=== PATIENT | male | born 2000 | race African-American/Black ===

== ENCOUNTER 2024-11-10 20:32 | Emergency (ER) | payer BC, SELFPAY ==
--- NOTE | ~2024-11-10 | XR_ITS ---
XR chest 1V portable Ordering provider: Marino Farias MD History: 24 years Male with . Localized wheezing, LLL . Comparison: None. FINDINGS: MEDIASTINUM: The cardiac silhouette is not enlarged. LUNGS: No infiltrates, effusions or pneumothorax. OTHER: No free air under the diaphragm. IMPRESSION: No acute cardiopulmonary pathology. Reviewed, dictated and finalized at location A.
[2024-11-10 20:34] VITALS: BP 119/86; PULSE 63; RESP 12; TEMP 36.9; O2SAT 100
[2024-11-10] MEDS: SODIUM CHLORIDE 0.9% IV 2,000 ML 999 ML IV CONT (21:18)
[2024-11-10] MEDS: ONDANSETRON INJ 4 MG/2 ML VIAL IV PUSH (21:19)
[2024-11-10] MEDS: FAMOTIDINE 20 MG/2 ML VIAL IV PUSH (21:19)
[2024-11-10 21:32] LABS: Basophils Percent Auto 0.2 % (0.2-1.2); Eosinophils Absolute Auto 0.1 K/mm3 (0-0.3); Eosinophils Percent Auto 1.4 % (0-4.4); Hematocrit 44.3 % (42.0-52.0); Hemoglobin 13.9 g/dL (14.0-18.0); Immature Granulocyte Absolute 0.04 K/mm3 (0.00-0.031); Immature Granulocyte Percent A 0.6 % (0-0.5); Lymphocytes Percent Auto 50.9 % (18.3-44.2); Mean Corpuscular HGB Conc 31.4 g/dl (32-36); Mean Corpuscular Hemoglobin 26.6 pg (26-34); Mean Corpuscular Volume 84.9 fl (80-100); Monocytes Absolute Auto 0.6 K/mm3 (0.1-0.6); Monocytes Percent Auto 10.2 % (2.6-8.5); Neutrophils Absolute Auto 2.3 K/mm3 (1.3-6.7); Neutrophils Percent Auto 36.7 % (45.5-73.1); Platelet Count Result 297 k/mm3 (150-375); Red Blood Count 5.22 M/mm3 (4.6-6.20); Red Cell Distribution Width 12.8 % (11.5-14.5); White Blood Count 6.3 K/mm3 (4.5-10.0)
[2024-11-10 21:42] LABS: Alanine Aminotransferase 14 U/L (6-50); Albumin Level 4.3 g/dL (3.5-5.1); Alkaline Phosphatase 64 U/L (38-126); Anion Gap 7 mmol/L (4-12); Aspartate Amino Transferase 27 U/L (17-59); Bilirubin,Total 0.7 mg/dL (0.2-1.3); Blood Urea Nitrogen 7 mg/dL (9-20); Calcium 9.3 mg/dL (8.4-10.2); Carbon Dioxide 27 mmol/L (22-30); Chloride 106 mmol/L (98-107); Estimated CRCL calculation 118 ml/min; Estimated Glomerular Filt Rate > 60; Glucose 89 mg/dL (65-110); Lipase 26 U/L (23-300); Potassium 3.9 mmol/L (3.4-5.0); Sodium 140 mmol/L (137-145)
--- NOTE | 2024-11-10 21:42 | ED.GENADULT ---
HPI - General Adult General Chief complaint: Nausea/Vomiting/Diarrhea Stated complaint: flu like symptoms and N/V Time Seen by Provider: 11/10/24 20:49 History of Present Illness HPI narrative: This is a 24-year-old male presenting with 4 days of viral symptoms. Symptoms include headache, productive cough with wheezing, nausea. He denies throat pain ear pain chest pain abdominal symptoms. Taking [id number] NyQuil. Related Data Allergies Allergy/AdvReac Type Severity Reaction Status Date / Time No Known Allergies Allergy Verified 11/10/24 20:34 Exam Narrative: APPEARANCE: No apparent distress. Well-appearing Head: atraumatic. EYES: EOMI, NOSE: Atraumatic NECK: Trachea midline RESPIRATORY: No increased rate of breathing, scattered wheezing left lower lobe CARDIOVASCULAR: RRR, no peripheral edema ABDOMINAL: Non-distended soft nontender MUSCULOSKELETAl: No obvious deformities NEURO: Alert. Moving 4/4 extremities SKIN:: Warm, dry. Normal color PSYCHIATRIC: Normal affect Course Vital Signs Vital signs: Vital Signs Temperature 98.4 F 11/10/24 20:34 Pulse Rate 63 11/10/24 20:34 Respiratory Rate 12 11/10/24 20:34 Blood Pressure 119/86 11/10/24 20:34 Pulse Oximetry 100 11/10/24 20:34 Oxygen Delivery Room Air 11/10/24 20:34 Temperature 98.4 F 11/10/24 20:34 Pulse Rate 65 11/10/24 21:56 Respiratory Rate 20 11/10/24 21:56 Blood Pressure 119/86 11/10/24 20:34 Pulse Oximetry 100 11/10/24 20:34 Oxygen Delivery Room Air 11/10/24 20:34 Medical Decision Making [facility] Narrative Medical decision making narrative: -Course: 24-year-old male presenting with viral symptoms. Got some scattered wheezing specifically left lower lobe. Given breathing treatment improvement. -DDX includes but is not limited to: Viral syndrome pneumonia flu COVID bronchitis asthma reactive airway disease Vital Signs Vital Signs: Vital Signs Temperature 98.4 F 11/10/24 20:34 Pulse Rate 63 11/10/24 20:34 Respiratory Rate 12 11/10/24 20:34 Blood Pressure 119/86 11/10/24 20:34 Pulse Oximetry 100 11/10/24 20:34 Oxygen Delivery Room Air 11/10/24 20:34 Temperature 98.4 F 11/10/24 20:34 Pulse Rate 65 11/10/24 21:56 Respiratory Rate 20 11/10/24 21:56 Blood Pressure 119/86 11/10/24 20:34 Pulse Oximetry 100 11/10/24 20:34 Oxygen Delivery Room Air 11/10/24 20:34 Lab Data 11/10/24 21:23 11/10/24 21:23 Labs: Lab Results 11/10/24 Range/Units 21:23 WBC 6.3 (4.5-10.0) K/mm3 RBC 5.22 (4.6-6.20) M/mm3 Hgb 13.9 L (14.0-18.0) g/dL Hct 44.3 (42.0-52.0) % MCV 84.9 (80-100) fl MCH 26.6 (26-34) pg MCHC 31.4 L (32-36) g/dl RDW 12.8 (11.5-14.5) % Plt Count 297 (150-375) k/mm3 MPV 10.0 (7.4-10.4) fl Immature Gran % (Auto) 0.6 H (0-0.5) % Neut % (Auto) 36.7 L (45.5-73.1) % Lymph % (Auto) 50.9 H (18.3-44.2) % [place] % (Auto) 10.2 H (2.6-8.5) % Eos % (Auto) 1.4 (0-4.4) % Baso % (Auto) 0.2 (0.2-1.2) % Lymph # (Auto) 3.20 (0.9-3.2) K/mm3 [place] # (Auto) 0.6 (0.1-0.6) K/mm3 Eos # (Auto) 0.1 (0-0.3) K/mm3 Baso # (Auto) 0.0 (0.0-0.1) K/mm3 Abs Immat Gran (auto) 0.04 H (0.00-0.031) K/mm3 Absolute Neuts (auto) 2.3 (1.3-6.7) K/mm3 Absolute Nucleated RBC 0.000 (0.0-0.012) K/mm3 Nucleated RBC % 0.0 (0.0-0.2) % Sodium 140 (137-145) mmol/L Potassium 3.9 (3.4-5.0) mmol/L Chloride 106 (98-107) mmol/L Carbon Dioxide 27 (22-30) mmol/L Anion Gap 7 (4-12) mmol/L BUN 7 L (9-20) mg/dL Creatinine 0.91 (0.7-1.3) mg/dL Estim Creat Clear Calc 118 ml/min Estimated GFR > 60 (59 - ) Glucose 89 (65-110) mg/dL Calcium 9.3 (8.4-10.2) mg/dL Total Bilirubin 0.7 (0.2-1.3) mg/dL AST 27 (17-59) U/L ALT 14 (6-50) U/L Alkaline Phosphatase 64 (38-126) U/L Total Protein 7.0 (6.3-8.2) g/dL Albumin 4.3 (3.5-5.1) g/dL Lipase 26 (23-300) U/L Influenza A (RT-PCR) Negative (Negative) Influenza B (RT-PCR) Negative (Negative) RSV (RT-PCR) Negative (Negative) SARS-CoV-2 RNA (RT-PCR) Negative (Negative) Discharge Plan Discharge Clinical Impression: Bronchitis Patient Disposition: Home Condition: Stable Instructions: Antibiotic Form, Acute Bronchitis (ED) Additional Instructions: He was seen emergency department for cold symptoms. You have bronchitis. This will cure over time without antibiotics. Use Motrin Tylenol body aches and headaches. Use albuterol her chest tightness and wheezing. Return if you develop fevers or if your condition is getting worse. Patient Language: German Prescriptions: New ibuprofen 800 mg tablet 800 mg PO TID PRN (Reason: pain) 7 Days Qty: 21 0RF acetaminophen 500 mg tablet 1,000 mg PO TID PRN (Reason: wojciech) 7 Days Qty: 42 0RF albuterol sulfate [Ventolin HFA] 90 mcg/actuation HFA aerosol inhaler 1 inh inhalation QID PRN (Reason: shortness of breath or wheezing) Qty: 8.5 0RF Follow-up/Referrals: PHYSICIAN,FULL TIME BABYSITTER [Primary Care Provider] -
[2024-11-10 21:56] VITALS: PULSE 65; RESP 20
[2024-11-10] MEDS: IPRATROPIUM 0.5 MG/ALBUTEROL SULFATE 2.5 MG AMPUL.NEB 3 ML 6 ML INHALATION (21:56)
[2024-11-10 22:08] LABS: Influenza A QL RT-PCR Negative (Negative); Influenza B QL RT-PCR Negative (Negative); RSV RNA, RT-PCR Negative (Negative); SARS-CoV-2 RNA PCR Negative (Negative)
[2024-11-10] MEDS: KETOROLAC 15 MG/ML VIAL (*BKC) IV PUSH (22:16)
[2024-11-10 22:56] VITALS: BP 115/81; PULSE 64; RESP 16; O2SAT 100
== END 2024-11-10 22:58 | disposition home or self-care (01) ==
PROVIDERS: Emergency Provider Emergency Medicine
DX: J40 Bronchitis, not specified as acute or chronic (principal); Z20.822 Contact with and (suspected) exposure to COVID-19
CPT/HCPCS: 36415; 71045; 80053; 83690; 85025; 87637; 94640; 96361; 96374; 96375; 99284; J1885; J2405; J7030